=== PATIENT | female | born 1955 ===

== ENCOUNTER 2017-12-03 09:47 | Emergency (ER) | payer MEDICARE, MEDICAID ==
[2017-12-03] MEDS ORDERED: ACETAMINOPHEN 325 MG TAB PO ONE (10:23)
--- NOTE | 2017-12-03 10:28 | Emergency Department Record ---
History of Present Illness - General Chief Complaint: Fall Injury Stated Complaint: fall Time Seen by Provider: 12/03/17 10:19 Source: Patient Mode of Arrival: EMS Limitations: No limitations - History of Present Illness Initial Comments: The patient slipped in the shower and landed on her L side injuring her L ribs and elbow. She denies hitting her head or any LOC or neck pain. She was able to complete her shower after the fall with minimal trouble but since her ribs were still painful she felt she needed to come to the ER. The patient denies any AP, back pain, nausea, vomiting, or weakness. MD Complaint: Fall Onset/Timin -: Hour(s) Fall From: Standing When Fall Occurred: Just prior to arrival Fall Witnessed: No Place Fall Occurred: Home Loss of Consciousness: None Prolonged Down Time?: No Symptoms Prior to Fall: None Severity: Moderate Severity scale (1-10): 5 Quality: Aching Associated Symptoms: Denies - Gil Coma Scale Eye Response: (4) Open spontaneously Motor Response: (6) Obeys commands Verbal Response: (5) Oriented Gil Total: 15 - Related Data Previous Rx's Medication Instructions Recorded Metronidazole [Flagyl] 500 mg PO BID #14 tablet 12/03/17 Allergies Allergy/AdvReac Type Severity Reaction Status Date / Time beeswax Allergy Intermediate swelling Verified 12/03/17 10:14 perfume Allergy Intermediate tight chest Verified 12/03/17 10:14 simethicone [From Gas-X] Allergy Intermediate tight chest Verified 12/03/17 10: 14 mosquito Allergy Intermediate swelling Uncoded 12/03/17 10:14 Travel Screening - Travel/Exposure Within Last 30 Days Have you traveled within the last 30 days?: No - Travel/Exposure Within Last Year Have you traveled outside the [place] in the last year?: No - Additonal Travel Details Have you been exposed to anyone with a communicable illness?: No - Travel Symptoms Symptom Screening: None Review of Systems Constitutional: Denies: Chills, Fever Eyes: Denies: Eye discharge ENT: Denies: Congestion Respiratory: Denies: Cough, Dyspnea Past Medical History - SOCIAL HISTORY Smoking Status: Former smoker Alcohol Use: Occasional Drug Use: None - RESPIRATORY Hx Respiratory Disorders: Yes Hx Sleep Apnea: Yes Hx of CPAP: Yes Comment:: seasonal allergies - CARDIOVASCULAR Hx Cardio Disorders: Yes Hx Hypertension: Yes Hx Irregular Heartbeat: Yes Hx Palpitations: Yes - NEURO Hx Headaches: Yes - GI Hx Reflux: Yes - Hx UTI: Yes - ENDOCRINE Hx Diabetes: No Hx Thyroid Disease: Yes - MUSCULOSKELETAL Hx Back Injury: Yes - PSYCH Hx Psych Problems: No - HEMATOLOGY/ONCOLOGY Hx Hematology/Oncology Disorders: No Family Medical History Any Significant Family History?: Yes Physical Exam - General General Appearance: Alert, Oriented x3, Cooperative, No acute distress - Head Head exam: Atraumatic, Normocephalic, Normal inspection - Eye Eye exam: Normal appearance, PERRL - ENT Throat exam: Normal inspection. negative: Tonsillar erythema, Tonsillar exudate - Neck Neck exam: Normal inspection, Full ROM. negative: Tenderness - Respiratory Respiratory exam: Normal lung sounds bilaterally, Chest wall tenderness (The L lower ribs are mildly tender to palpation but no bruising or swelling is appreciated.). negative: Respiratory distress - Cardiovascular Cardiovascular Exam: Regular rate, Normal rhythm, Normal heart sounds - GI/Abdominal GI/Abdominal exam: Soft, Normal bowel sounds. negative: Distended, Rebound, Rigid, Tenderness - Extremities Extremities exam: Full ROM, Tenderness (There is mild tenderness to the posterior L elbow.). negative: Normal inspection - Neurological Neurological exam: Alert, Normal gait, Oriented X3. negative: Abnormal gait, Motor sensory deficit Course Vital Signs 12/03/17 09:55 Temperature 97.4 F L Pulse Rate 55 L Respiratory 16 Rate Blood Pressure 172/93 Pulse Ox 96 - Reevaluation(s) Reevaluation #1: The patient is doing better at this time. She denies any significant pain or discomfort. I did discuss the normal xrays and the UA that did demonstrate Trich with the patient and the need for F/U. 12/03/17 12:40 Medical Decision Making - Data Complexity MDM Data: Labs Ordered and/or Reviewed, X-Ray Ordered and/or Reviewed - Radiology Data Radiology results: Report reviewed (xrays: Neg for fx.) Disposition Disposition: Discharge Clinical Impression: Contusion of rib on left side Qualifiers: Encounter type: initial encounter Qualified Code(s): S20.212A - Contusion of left front wall of thorax, initial encounter Disposition: Home, Self-Care Condition: (2) Stable Instructions: Rib Contusion (ED) Additional Instructions: Please take Tylenol or Motrin for pain and take the Flagyl as directed. Please see your PCP next week for recheck and to be further evaluated for STD's. Prescriptions: Metronidazole [Flagyl] 500 mg PO BID #14 tablet Forms: Patient Portal Access Time of Disposition: 12:42 Quality - Quality Measures Quality Measures: N/A - Blood Pressure Screening View Details: Yes Does Patient Have Any of the Following: No Blood Pressure Classification: Hypertensive Reading Systolic Measurement: 172 Diastolic Measurement: 93 Screening for High Blood Pressure: < Pre-Hypertensive BP, F/U Documented > [ G8950] Pre-Hypertensive Follow-up Interventions: Referral to alternative/primary care provider.
[2017-12-03 11:04] LABS: URINE APPEARANCE CLEAR; URINE BILIRUBIN NEGATIVE (NEGATIVE); URINE BLOOD TRACE-L (NEGATIVE); URINE COLOR YELLOW; URINE GLUCOSE (UA) NEGATIVE (NEGATIVE); URINE KETONE NEGATIVE (NEGATIVE); URINE LEUKOCYTE ESTERASE SMALL (NEGATIVE); URINE NITRITE NEGATIVE (NEGATIVE); URINE UROBILINOGEN 0.2 E.U./dL (0.20 - 1.00)
[2017-12-03 11:34] LABS: URINE TRICHOMONAS FEW
--- NOTE | 2017-12-03 19:49 | RADIOLOGY REPORT ---
EXAM: ELBOW, LEFT 3 VIEWS HISTORY: LEFT ELBOW PAIN, PATIENT FELL. TECHNIQUE: Five views left elbow. COMPARISON: None. ENCOUNTER: Initial. FINDINGS: The left elbow appears intact with no definite fracture or dislocation seen. No joint effusion identified. IMPRESSION: THE LEFT ELBOW APPEARS NEGATIVE. JOB NUMBER: [id number] [facility]
--- NOTE | 2017-12-03 20:03 | RADIOLOGY REPORT ---
EXAM: RIBS, LEFT W/PA CHEST HISTORY: PATIENT FELL WITH LEFT RIB PAIN. TECHNIQUE: AP and oblique views of the left ribs, AP chest. COMPARISON: No prior chest x-ray or left rib series with which to compare. ENCOUNTER: Initial. FINDINGS: No definite left rib fracture identified. On the chest x-ray, no pneumothorax or pleural effusion evident. Mild cardiomegaly is likely present. IMPRESSION: NO DEFINITE LEFT RIB FRACTURE IDENTIFIED. JOB NUMBER: [id number] [facility]
== END 2017-12-03 12:49 | disposition home or self-care (01) ==
LOC: ER 09:47
DX: S20.212A Contusion of left front wall of thorax, initial encounter (principal); M25.522 Pain in left elbow; W18.2XXA Fall in (into) shower or empty bathtub, initial encounter; Y92.002 Bathroom of unspecified non-institutional (private) residence as the place of occurrence of the external cause
CPT/HCPCS: 81001; 99283; 99284

== ENCOUNTER 2018-06-21 16:18 | Emergency (ER) | payer MEDICARE, MEDICAID ==
[2018-06-21] MEDS: KETOROLAC 30 MG/ML VIAL IM ONE (17:03)
--- NOTE | 2018-06-21 17:05 | Emergency Department Record ---
History of Present Illness - General Chief complaint: Extremity Problem Stated complaint: rt leg pain Time Seen by Provider: 06/21/18 16:31 Source: Patient Mode of Arrival: EMS Limitations: No limitations - History of Present Illness Initial comments: pt brought in by ambulance for chronic pain. pt states she has started using crutches because she has too much pain from her back over her hip and down her right leg. she has had xrays of her back and knee over the last few months and has had physical therapy. she denies new injury. she states she is unable to walk and the pain is unbearable. she has not had an mri. -: Month(s) Location: Right, Knee, Thigh History of Same: Yes Severity scale (1-10): 10 Quality: Sharp, Stabbing Consistency: Constant Improves with: Nothing Worsens with: Nothing Associated Symptoms: Denies other symptoms - Related Data Allergies Allergy/AdvReac Type Severity Reaction Status Date / Time beeswax Allergy Intermediate swelling Verified 06/21/18 16:25 perfume Allergy Intermediate tight chest Verified 06/21/18 16:25 simethicone [From Gas-X] Allergy Intermediate tight chest Verified 06/21/18 16: 25 mosquito Allergy Intermediate swelling Uncoded 12/03/17 10:14 Travel Screening - Travel/Exposure Within Last 30 Days Have you traveled within the last 30 days?: No - Travel/Exposure Within Last Year Have you traveled outside the [place] in the last year?: No - Additonal Travel Details Have you been exposed to anyone with a communicable illness?: No - Travel Symptoms Symptom Screening: None Review of Systems Reviewed: No additional complaints except as noted below Constitutional: Reports: As per HPI. Denies: Chills, Fever, Malaise, Night sweats, Weakness, Weight change Eyes: Reports: As per HPI. Denies: Eye discharge, Eye pain, Photophobia, Vision change ENT: Reports: As per HPI. Denies: Congestion, Dental pain, Ear pain, Epistaxis , Hearing loss, Throat pain Respiratory: Reports: As per HPI. Denies: Cough, Dyspnea, Hemoptysis, Stridor, Wheezes Cardiovascular: Reports: As per HPI. Denies: Arrhythmia, Chest pain, Dyspnea on exertion, Edema, Murmurs, Orthopnea, Palpitations, Paroxysmal nocturnal dyspnea, Rheumatic Fever, Syncope Endocrine: Reports: As per HPI. Denies: Fatigue, Heat or cold intolerance, Polydipsia, Polyuria Gastrointestinal: Reports: As per HPI. Denies: Abdominal pain, Constipation, Diarrhea, Hematemesis, Hematochezia, Melena, Nausea, Vomiting Genitourinary: Reports: As per HPI. Denies: Abnormal menses, Discharge, Dyspareunia, Dysuria, Frequency, Hematuria, Incontinence, Retention, Urgency Musculoskeletal: Reports: As per HPI, Arthralgia, Myalgia. Denies: Back pain, Gout, Joint swelling, Neck pain Skin: Reports: As per HPI. Denies: Bruising, Change in color, Change in hair/ nails, Lesions, Pruritus, Rash Neurological: Reports: As per HPI. Denies: Abnormal gait, Confusion, Headache, Numbness, Paresthesias, Seizure, Tingling, Tremors, Vertigo, Weakness Psychiatric: Reports: As per HPI. Denies: Anxiety, Auditory hallucinations, Depression, Homicidal thoughts, Suicidal thoughts, Visual hallucinations Hematological/Lymphatic: Reports: As per HPI. Denies: Anemia, Blood Clots, Easy bleeding, Easy bruising, Swollen glands Past Medical History - SOCIAL HISTORY Smoking Status: Former smoker Alcohol Use: Occasional Drug Use: None - RESPIRATORY Hx Respiratory Disorders: Yes Hx Sleep Apnea: Yes Hx of CPAP: Yes Comment:: seasonal allergies - CARDIOVASCULAR Hx Cardio Disorders: Yes Hx Hypertension: Yes Hx Irregular Heartbeat: Yes Hx Palpitations: Yes - NEURO Hx Neuro Disorders: Yes Hx Headaches: Yes - GI Hx GI Disorders: Yes Hx Reflux: Yes - Hx Genitourinary Disorders: Yes Hx UTI: Yes - ENDOCRINE Hx Endocrine Disorders: Yes Hx Diabetes: No Hx Thyroid Disease: Yes - MUSCULOSKELETAL Hx Musculoskeletal Disorders: Yes Hx Back Injury: Yes - PSYCH Hx Psych Problems: No - HEMATOLOGY/ONCOLOGY Hx Hematology/Oncology Disorders: No Family Medical History Any Significant Family History?: No Physical Exam - General General Appearance: Alert, Oriented x3, Cooperative, Mild distress - Head Head exam: Normal inspection - Eye Eye exam: Normal appearance, PERRL, EOMI Pupils: Normal accommodation - ENT ENT exam: Normal exam, Mucous membranes moist, Normal external ear exam, Normal orophraynx Ear exam: Normal external inspection. negative: External canal tenderness Nasal Exam: Normal inspection. negative: Discharge, Sinus tenderness Mouth exam: Normal external inspection, Tongue normal Teeth exam: Normal inspection. negative: Dental caries Throat exam: Normal inspection. negative: Tonsillar erythema, Tonsillar exudate - Neck Neck exam: Normal inspection, Full ROM. negative: Tenderness - Respiratory Respiratory exam: Normal lung sounds bilaterally. negative: Respiratory distress - Cardiovascular Cardiovascular Exam: Regular rate, Normal rhythm, Normal heart sounds - GI/Abdominal GI/Abdominal exam: Soft, Normal bowel sounds. negative: Tenderness - Rectal Rectal exam: Deferred - exam: Deferred - Extremities Extremities exam: Normal inspection, Full ROM, Normal capillary refill, Tenderness (r hip) - Back Back exam: Reports: Normal inspection, Full ROM, Tenderness. Denies: Muscle spasm, Rash noted - Neurological Neurological exam: Alert, CN II-XII intact, Normal gait, Oriented X3 - Psychiatric Psychiatric exam: Normal affect, Normal mood - Skin Skin exam: Dry, Intact, Normal color, Warm Course Vital Signs 06/21/18 16:28 Temperature 98.3 F Pulse Rate 58 L Respiratory 20 Rate Blood Pressure 191/109 Pulse Ox 97 - Reevaluation(s) Reevaluation #1: 06/21/18 18:23 ct shows minor disc bulging Medical Decision Making - Lab Data Result diagrams: 06/21/18 17:00 06/21/18 17:00 Disposition Disposition: Discharge Clinical Impression: Chronic back pain Qualifiers: Back pain location: low back pain Back pain laterality: right Sciatica presence : with sciatica Sciatica laterality: sciatica of right side Qualified Code(s): M54.41 - Lumbago with sciatica, right side; G89.29 - Other chronic pain Sciatica Qualifiers: Laterality: right Qualified Code(s): M54.31 - Sciatica, right side Disposition: Home, Self-Care Condition: (1) Good Instructions: Sciatica (ED), Back Pain (ED) Additional Instructions: follow up with family doctor. return sooner if worse Forms: Patient Portal Access Quality - Quality Measures Quality Measures: N/A - Blood Pressure Screening Does Patient Have Any of the Following: No Blood Pressure Classification: Hypertensive Reading Systolic Measurement: 191 Diastolic Measurement: 109 Screening for High Blood Pressure: < First Hypertensive BP, F/U Documented > [ G8950] First Hypertensive Follow-up Interventions: Follow-up with rescreen GT 1 day and LT 4 weeks.
[2018-06-21 17:10] LABS: BASO % 0.8 % (0-6); EOS % 0.2 % (0-6); GRAN % 71.1 % (47-80); HEMATOCRIT 46.1 % (35.0-47.0); HEMOGLOBIN 15.3 gm/dl (11.6-16.0); LYMPH % 20.9 % (16-45); MEAN CORPUSCULAR HEMOGLOBIN 31.9 pg (27-33); MEAN CORPUSCULAR HGB CONC 33.2 g/dl (32-36); MEAN PLATELET VOLUME 10.1 fl (7.4-10.4); PLATELET COUNT 191 K/uL (130-400); RED CELL DISTRIBUTION WIDTH 12.4 % (11.5-14.5); WHITE BLOOD COUNT W/O DIFF 4.7 K/uL (4.2-12.2)
[2018-06-21 17:20] LABS: BLOOD UREA NITROGEN 10 mg/dL (8-23); CREATININE 0.8 mg/dL (0.5-0.9); EST GLOMERULAR FILTRATION RATE > 60 mL/min
[2018-06-21 17:21] LABS: TOTAL PROTEIN 7.1 g/dL (6.6-8.7)
[2018-06-21 17:23] LABS: GLUCOSE,RANDOM 91 mg/dL (74-109)
[2018-06-21 17:25] LABS: ALB/GLOB RATIO 1.3 (1.1-1.8); ALKALINE PHOSPHATASE 103 U/L (35-104); ALT/SGPT 25 U/L (<33); AST/SGOT 35 U/L (10.0-35.0)
[2018-06-21 17:26] LABS: CREATINE PHOSPHOKINASE 140 U/L (26-192)
[2018-06-21 17:45] LABS: ERYTHROCYTE SEDIMENTATION RATE 6 mm/hr (0-30)
[2018-06-21] MEDS: HYDROCODONE/APAP 5/325MG TABLET PO ONE (18:32)
--- NOTE | 2018-06-22 15:21 | CT SCAN REPORT ---
EXAM: CT OF THE LUMBAR SPINE WITHOUT CONTRAST HISTORY: LOW BACK PAIN, RIGHT HIP PAIN. TECHNIQUE: Sequential axial images were obtained through the lumbar spine without intravenous contrast administration. Sagittal and coronal three dimensional reformatted were performed at an independent workstation. Comparison: None. FINDINGS: There is normal vertebral body height and alignment. There is no compression fracture deformity, spondylolysis, or spondylolisthesis. At the L2-L3 level: Minimal disk bulge effaces the ventral thecal sac. No significant central canal stenosis or neural foraminal narrowing. At the L3-L4 level: Minimal disk bulge effaces the ventral thecal sac. No significant central canal stenosis or neural foraminal narrowing. At the L4-L5 level: Minimal disk bulge effaces the ventral thecal sac. No significant central canal stenosis or neural foraminal narrowing. At the L5-S1 level: Minimal disk bulge effaces the ventral thecal sac. No significant central canal stenosis or neural foraminal narrowing. No gross abnormalities within the visceral structures. IMPRESSION: MILD MULTILEVEL DEGENERATIVE CHANGE. NO EVIDENCE OF FRACTURE, SPONDYLOLYSIS OR SPONDYLOLISTHESIS. NO LARGE DISK HERNIATION, CENTRAL CANAL STENOSIS, OR NEURAL FORAMINAL NARROWING IS APPRECIATED. J[facility]BER: [id number] [facility]
== END 2018-06-21 18:56 | disposition home or self-care (01) ==
LOC: ER 16:18
DX: M54.41 Lumbago with sciatica, right side (principal); M25.561 Pain in right knee; I10 Essential (primary) hypertension; Z87.891 Personal history of nicotine dependence
CPT/HCPCS: 99283; 96372; 99284; 82550; 85025; 85651; 80053; 72131; J1885

== ENCOUNTER 2019-02-01 11:39 | Observation (INO) | payer MEDICARE, MEDICAID ==
[2019-02-01 11:55] LABS: URINE APPEARANCE CLEAR; URINE BILIRUBIN NEGATIVE (NEGATIVE); URINE BLOOD NEGATIVE (NEGATIVE); URINE COLOR YELLOW; URINE GLUCOSE (UA) NEGATIVE (NEGATIVE); URINE KETONE NEGATIVE (NEGATIVE); URINE LEUKOCYTE ESTERASE NEGATIVE (NEGATIVE); URINE NITRITE NEGATIVE (NEGATIVE); URINE PROTEIN NEGATIVE (NEGATIVE); URINE UROBILINOGEN 0.2 E.U./dL (0.20 - 1.00)
--- NOTE | 2019-02-01 11:56 | Emergency Department Record ---
History of Present Illness - General Chief complaint: Weakness Stated complaint: ABD PAIN/WEAKNESS Time Seen by Provider: 02/01/19 11:44 Source: Patient, RN notes reviewed - History of Present Illness Initial comments: patient was at her primary Provider Chas Joshua and she has been having more falls and slurred speech and some facial asymmetry and no headache and looked juandice. Patient has a history of drinking heavier than she admits too. patient was found to have a bradycardia of 40 in the office. - Related Data Home Medications Medication Instructions Recorded Confirmed Last Taken Hydrocortisone 1 applic TOP ASDIR 02/01/19 02/01/19 02/01/19 Allergies Allergy/AdvReac Type Severity Reaction Status Date / Time beeswax Allergy Intermediate swelling Verified 02/01/19 11:43 perfume Allergy Intermediate tight chest Verified 02/01/19 11:43 simethicone [From Gas-X] Allergy Intermediate tight chest Verified 02/01/19 11: 43 mosquito Allergy Intermediate swelling Uncoded 12/03/17 10:14 Review of Systems Reviewed: No additional complaints except as noted below Constitutional: Reports: As per HPI. Denies: Chills, Fever, Malaise, Night sweats, Weakness, Weight change Eyes: Reports: As per HPI. Denies: Eye discharge, Eye pain, Photophobia, Vision change ENT: Reports: As per HPI. Denies: Congestion, Dental pain, Ear pain, Epistaxis , Hearing loss, Throat pain Respiratory: Reports: As per HPI. Denies: Cough, Dyspnea, Hemoptysis, Stridor, Wheezes Cardiovascular: Reports: As per HPI, Arrhythmia. Denies: Chest pain, Dyspnea on exertion, Edema, Murmurs, Orthopnea, Palpitations, Paroxysmal nocturnal dyspnea, Rheumatic Fever, Syncope Endocrine: Reports: As per HPI. Denies: Fatigue, Heat or cold intolerance, Polydipsia, Polyuria Gastrointestinal: Reports: As per HPI. Denies: Abdominal pain, Constipation, Diarrhea, Hematemesis, Hematochezia, Melena, Nausea, Vomiting Genitourinary: Reports: As per HPI. Denies: Abnormal menses, Discharge, Dyspareunia, Dysuria, Frequency, Hematuria, Incontinence, Retention, Urgency Musculoskeletal: Reports: As per HPI. Denies: Arthralgia, Back pain, Gout, Joint swelling, Myalgia, Neck pain Skin: Reports: As per HPI. Denies: Bruising, Change in color, Change in hair/ nails, Lesions, Pruritus, Rash Neurological: Reports: As per HPI. Denies: Abnormal gait, Confusion, Headache, Numbness, Paresthesias, Seizure, Tingling, Tremors, Vertigo, Weakness Psychiatric: Reports: As per HPI. Denies: Anxiety, Auditory hallucinations, Depression, Homicidal thoughts, Suicidal thoughts, Visual hallucinations Hematological/Lymphatic: Reports: As per HPI. Denies: Anemia, Blood Clots, Easy bleeding, Easy bruising, Swollen glands Past Medical History - SOCIAL HISTORY Smoking Status: Former smoker Drug Use: None - RESPIRATORY Hx Respiratory Disorders: Yes Hx Sleep Apnea: Yes Hx of CPAP: Yes Comment:: seasonal allergies - CARDIOVASCULAR Hx Cardio Disorders: Yes Hx Hypertension: Yes Hx Irregular Heartbeat: Yes Hx Palpitations: Yes - NEURO Hx Neuro Disorders: Yes Hx Headaches: Yes - GI Hx GI Disorders: Yes Hx Reflux: Yes - Hx Genitourinary Disorders: Yes Hx UTI: Yes - ENDOCRINE Hx Endocrine Disorders: Yes Hx Diabetes: No Hx Thyroid Disease: Yes - MUSCULOSKELETAL Hx Musculoskeletal Disorders: Yes Hx Back Injury: Yes - PSYCH Hx Psych Problems: No - HEMATOLOGY/ONCOLOGY Hx Hematology/Oncology Disorders: No Physical Exam - General General Appearance: Alert, Oriented x3, Cooperative, No acute distress - Head Head exam: Normal inspection - Eye Eye exam: Normal appearance, PERRL Pupils: Normal accommodation - ENT ENT exam: Normal exam, Mucous membranes moist, Normal external ear exam, Normal orophraynx, TM's normal bilaterally Ear exam: Normal external inspection. negative: External canal tenderness Nasal Exam: Normal inspection. negative: Discharge, Sinus tenderness Mouth exam: Normal external inspection, Tongue normal Teeth exam: Normal inspection. negative: Dental caries Throat exam: Normal inspection. negative: Tonsillar erythema, Tonsillar exudate - Neck Neck exam: Normal inspection, Full ROM. negative: Tenderness - Respiratory Respiratory exam: Normal lung sounds bilaterally. negative: Respiratory distress - Cardiovascular Cardiovascular Exam: Regular rate, Normal rhythm, Normal heart sounds - GI/Abdominal GI/Abdominal exam: Soft, Normal bowel sounds. negative: Tenderness - Rectal Rectal exam: Deferred - exam: Deferred - Extremities Extremities exam: Normal inspection, Full ROM, Normal capillary refill. negative: Tenderness - Back Back exam: Reports: Normal inspection, Full ROM. Denies: Muscle spasm, Rash noted, Tenderness - Neurological Neurological exam: Alert, Normal gait, Oriented X3, Reflexes normal - Psychiatric Psychiatric exam: Normal affect, Normal mood - Skin Skin exam: Dry, Intact, Normal color, Warm Course - Reevaluation(s) Reevaluation #1: Discussed case with Dr Espinal and will stop toprol XL and see if the heart rate comes up and if it doesn't she may need a pacemaker. 02/01/19 13:40 Reevaluation #2: discussed case with chas Joshua and Marilou and will admit for observation 02/01/19 13:54 Medical Decision Making - Lab Data Result diagrams: 02/01/19 11:55 02/01/19 11:55 Disposition Clinical Impression: Sinus bradycardia, Elevated bilirubin, Elevated liver enzymes Decision to Admit: Admit from ER Condition: (1) Good Forms: Patient Portal Access Time of Disposition: 13:54 Quality - Blood Pressure Screening Does Patient Have Any of the Following: No Blood Pressure Classification: Hypertensive Reading Systolic Measurement: 149 Diastolic Measurement: 92
[2019-02-01 12:07] LABS: AMPHETAMINE SCREEN URINE NOT DETECTED; BARBITURATE SCREEN URINE NOT DETECTED; BENZODIAZEPINE SCREEN URINE NOT DETECTED; COCAINE SCREEN URINE NOT DETECTED; METHADONE SCREEN URINE NOT DETECTED; METHAMPHETAMINE SCREEN NOT DETECTED; OPIATE SCREEN URINE NOT DETECTED; OXYCODONE SCREEN URINE NOT DETECTED; PHENCYCLIDINE SCREEN URINE NOT DETECTED; PROPOXYPHENE SCREEN URINE NOT DETECTED; THC SCREEN URINE NOT DETECTED; TRICYCLIC ANTIDEPRESSANT SCRN NOT DETECTED
[2019-02-01 12:22] LABS: BASO % 1.1 % (0-6); EOS % 1.1 % (0-6); GRAN % 63.3 % (47-80); HEMATOCRIT 42.8 % (35.0-47.0); HEMOGLOBIN 13.9 gm/dl (11.6-16.0); LYMPH % 25.4 % (16-45); MEAN CELL VOLUME 98.8 fl (81-97); MEAN CORPUSCULAR HEMOGLOBIN 32.1 pg (27-33); MEAN CORPUSCULAR HGB CONC 32.5 g/dl (32-36); MEAN PLATELET VOLUME 11.1 fl (7.4-10.4); MONO % 9.1 % (0-9); PLATELET COUNT 179 K/uL (130-400); RED BLOOD COUNT 4.33 M/uL (3.80-5.40); RED CELL DISTRIBUTION WIDTH 13.2 % (11.5-14.5); WHITE BLOOD COUNT W/O DIFF 3.7 K/uL (4.2-12.2)
[2019-02-01 13:01] LABS: BLOOD UREA NITROGEN 7 mg/dL (8-23); CREATININE 0.9 mg/dL (0.5-0.9); EST GLOMERULAR FILTRATION RATE > 60 mL/min
[2019-02-01 13:02] LABS: LIPASE 52 U/L (13-60); TOTAL PROTEIN 7.5 g/dL (6.6-8.7)
[2019-02-01 13:04] LABS: GLUCOSE,RANDOM 88 mg/dL (74-109)
[2019-02-01 13:06] LABS: ALBUMIN 4.6 g/dL (4.0-5.0); ALKALINE PHOSPHATASE 121 U/L (35-104); ALT/SGPT 51 U/L (<33); AST/SGOT 48 U/L (10.0-35.0); BILIRUBIN,DIRECT 0.2 mg/dL (0-0.3)
--- NOTE | 2019-02-02 05:28 | CT SCAN REPORT ---
EXAM: NONCONTRAST CT OF THE BRAIN HISTORY: FREQUENT FALLS, BLURRY VISION. TECHNIQUE: Noncontrast CT of the brain was obtained. Comparison: None. FINDINGS: No midline shift, mass effect, or abnormal intra or extraaxial fluid collection. No cerebral edema, focal mass or intracranial hemorrhage detected. The ventricle sizes are within normal limits. Scattered periventricular and subcortical white matter hypoattenuation is present. The basal cisterns are not effaced. No displaced calvarial fracture is detected. The visualized paranasal sinuses and mastoid air cells are clear. IMPRESSION: 1. NO ACUTE INTRACRANIAL FINDINGS. 2. NONSPECIFIC AREAS OF WHITE MATTER HYPOATTENUATION; MAY REPRESENT CHRONIC SMALL VESSEL ISCHEMIC CHANGE. JOB NUMBER: [id number] [facility]
--- NOTE | 2019-02-02 05:34 | RADIOLOGY REPORT ---
EXAM: CHEST, TWO VIEWS HISTORY: RIGHT FACIAL ASYMMETRY. TECHNIQUE: Two views of the chest were obtained. Comparison: Chest and left rib series 12/03/17. FINDINGS: Mild cardiac silhouette enlargement, stable from prior study. No new focal pulmonary opacities. No pleural effusion or pneumothorax. IMPRESSION: 1. MILD UNCHANGED CARDIAC SILHOUETTE ENLARGEMENT. 2. NO ACUTE LUNG FINDINGS. JOB NUMBER: [id number] [facility]
[2019-02-02] MEDS ORDERED: LEVOTHYROXINE SODIUM 100 MCG TABLET PO SCH (07:00)
[2019-02-02] MEDS: LISINOPRIL 20 MG TABLET PO SCH ×2 (07:40→10:20)
--- NOTE | 2019-02-02 09:37 | History & Physical ---
History of Present Illness - Date of Service Date of Service for History & Physical: 02/01/19 - History of Present Illness Admitting Diagnosis: bradycardia History of Present Illness: Yeni Casas is a 63 y/o female presenting to the ED as a transfer from PCP Shahla Joshua for bradycardia, slurred speech and jaundice skin, and RUQ abdominal tenderness. Patient is an extremely poor historian and does not have any family or friends present with her. Upon reviewing case with her PCP patient does have a hx of chronic heavy ETOH use, non-adherence to medication use. Other notable history includes frequent falling- last 2 days prior to admit , ETOH, thyroid disease including radiation therapy in the 70's, CARMELINA but does not use CPAP due to nose bleeds, cardiac arrhythmia, palpitations, HTN, headaches, GERD, chronic low back pain. In the ED EKG sinus bradycardia with ST segment depression and T-wave inversion , total bili 1.9, AST/ALT 48/51, ammonia wnl, troponin <.0.010, lipase 52, urine ETOH .010, UDS negative, CXR normal, CT head no acute process, + chronic white matter changes and small vessel ischemia. 02/01/19- Resting in bed comfortably, is a very poor historian. Does live alone and had a payee for her finances. Slurred speech, hyperverbal, flight of ideas. She does report has had RUQ abdominal pain for the past 2-3 days, had noticed her skin was becoming more yellow and itchy. Does admit to heavy alcohol use in the past stating at one point taking 3 shots of rum daily and then drinking a case of beer daily. Reports she takes her medications every day by taking them out the package and 'taking a handful of them daily". Did have a fall where she caught herself on a mailbox, denies head injury or LOC at that time. Unsure of event surrounding fall. Has had poor appetite. Denies chest pain, palpitations, dizziness, NANCY. Travel Screening - Travel/Exposure Within Last 30 Days Have you traveled within the last 30 days?: No - Travel/Exposure Within Last Year Have you traveled outside the [place] in the last year?: No - Additonal Travel Details Have you been exposed to anyone with a communicable illness?: No - Travel Symptoms Symptom Screening: None Review of Systems Constitutional: Reports: As per HPI. Denies: Chills, Fever, Malaise, Night sweats, Weakness, Weight change Eyes: Reports: As per HPI. Denies: Eye discharge, Eye pain, Photophobia, Vision change ENT: Reports: As per HPI. Denies: Congestion, Dental pain, Ear pain, Epistaxis , Hearing loss, Throat pain Respiratory: Reports: As per HPI. Denies: Cough, Dyspnea, Hemoptysis, Stridor, Wheezes Cardiovascular: Reports: As per HPI, Arrhythmia. Denies: Chest pain, Dyspnea on exertion, Edema, Murmurs, Orthopnea, Palpitations, Paroxysmal nocturnal dyspnea, Rheumatic Fever, Syncope Endocrine: Reports: As per HPI. Denies: Fatigue, Heat or cold intolerance, Polydipsia, Polyuria Gastrointestinal: Reports: As per HPI. Denies: Abdominal pain, Constipation, Diarrhea, Hematemesis, Hematochezia, Melena, Nausea, Vomiting Genitourinary: Reports: As per HPI. Denies: Abnormal menses, Discharge, Dyspareunia, Dysuria, Frequency, Hematuria, Incontinence, Retention, Urgency Musculoskeletal: Reports: As per HPI. Denies: Arthralgia, Back pain, Gout, Joint swelling, Myalgia, Neck pain Skin: Reports: As per HPI. Denies: Bruising, Change in color, Change in hair/ nails, Lesions, Pruritus, Rash Neurological: Reports: As per HPI. Denies: Abnormal gait, Confusion, Headache, Numbness, Paresthesias, Seizure, Tingling, Tremors, Vertigo, Weakness Psychiatric: Reports: As per HPI. Denies: Anxiety, Auditory hallucinations, Depression, Homicidal thoughts, Suicidal thoughts, Visual hallucinations Hematological/Lymphatic: Reports: As per HPI. Denies: Anemia, Blood Clots, Easy bleeding, Easy bruising, Swollen glands Past Medical History - SOCIAL HISTORY Smoking Status: Former smoker Alcohol Use: Occasional Drug Use: None - RESPIRATORY Hx Respiratory Disorders: Yes Hx Sleep Apnea: Yes Hx of CPAP: Yes Comment:: seasonal allergies - CARDIOVASCULAR Hx Cardio Disorders: Yes Hx Hypertension: Yes Hx Irregular Heartbeat: Yes Hx Palpitations: Yes - NEURO Hx Neuro Disorders: Yes Hx Headaches: Yes - GI Hx GI Disorders: Yes Hx Reflux: Yes - Hx Genitourinary Disorders: Yes Hx UTI: Yes - ENDOCRINE Hx Endocrine Disorders: Yes Hx Diabetes: No Hx Thyroid Disease: Yes - MUSCULOSKELETAL Hx Musculoskeletal Disorders: Yes Hx Back Injury: Yes - PSYCH Hx Psych Problems: No - HEMATOLOGY/ONCOLOGY Hx Hematology/Oncology Disorders: No Family Medical History Any Significant Family History?: Yes Hx Alcohol Use: Children Hx Heart Disease: Mother Hx HTN: Mother Hx Resp Disorders: Mother Hx Seizures: Mother Hx Stroke: Mother H&P Meds/Allergies - Allergies Allergies: Allergies Allergy/AdvReac Type Severity Reaction Status Date / Time beeswax Allergy Intermediate swelling Verified 02/01/19 11:43 perfume Allergy Intermediate tight chest Verified 02/01/19 11:43 simethicone [From Gas-X] Allergy Intermediate tight chest Verified 02/01/19 11: 43 mosquito Allergy Intermediate swelling Uncoded 12/03/17 10:14 - Home Medications Home Medications Medication Instructions Recorded Confirmed Last Taken Hydrocortisone 1 applic TOP ASDIR 02/01/19 02/01/19 02/01/19 - Active Medications Active Medications: Current Medications Aspirin (Ecotrin (Ec)) 325 mg PO DAILY [facility] Atorvastatin Calcium (Lipitor) 40 mg PO DAILY [facility] Levothyroxine Sodium (Synthroid) 200 mcg PO DAILYTHY [facility] Last Admin: 02/02/19 06:05 Dose: 200 mcg Lisinopril (Zestril) 20 mg PO DAILY [facility] Last Admin: 02/02/19 07:40 Dose: 20 mg Meloxicam (Mobic) 15 mg PO DAILY [facility] Physical Exam - Vital Signs Vital Signs: Vital Signs - Last 24 Hrs Temp Pulse Pulse Pulse Resp BP BP 02/02/19 07:40 97.9 F 48 L 18 159/69 02/02/19 03:00 97.8 F 46 L 16 158/78 02/01/19 19:30 45 L 12 160/80 02/01/19 16:05 97.0 F L 52 L 02/01/19 15:34 47 L 14 02/01/19 14:43 45 L 16 173/102 02/01/19 14:03 41 L 18 179/92 02/01/19 13:35 40 L 18 163/85 02/01/19 13:26 37 L 18 167/89 02/01/19 13:15 37 L 20 167/92 02/01/19 13:01 37 L 20 171/91 02/01/19 13:00 37 L 18 167/89 02/01/19 11:44 97.3 F L 42 L 20 149/92 Pulse Ox 02/02/19 07:40 95 02/02/19 03:00 02/01/19 19:30 95 02/01/19 16:05 02/01/19 15:34 02/01/19 14:43 97 02/01/19 14:03 95 02/01/19 13:35 96 02/01/19 13:26 97 02/01/19 13:15 97 02/01/19 13:01 98 02/01/19 13:00 97 02/01/19 11:44 98 - General General Appearance: Alert, Cooperative, No acute distress, Other (hyperverbal, flight of ideas, oriented 2-3) - Head Head exam: Normal inspection - Eye Eye exam: Normal appearance, PERRL Pupils: Normal accommodation - ENT ENT exam: Normal exam, Mucous membranes moist, Normal external ear exam, Normal orophraynx, TM's normal bilaterally Ear exam: Normal external inspection. negative: External canal tenderness Nasal Exam: Normal inspection. negative: Discharge, Sinus tenderness Mouth exam: Normal external inspection, Tongue normal Teeth exam: Normal inspection. negative: Dental caries Throat exam: Normal inspection. negative: Tonsillar erythema, Tonsillar exudate - Neck Neck exam: Normal inspection, Full ROM. negative: Tenderness - Respiratory Respiratory exam: Normal lung sounds bilaterally. negative: Respiratory distress - Cardiovascular Cardiovascular Exam: Regular rate, Normal rhythm, Normal heart sounds, Bradycardia Peripheral Pulses: 2+: Radial (R), Radial (L), Dorsalis Pedis (R), Dorsalis Pedis (L) - GI/Abdominal GI/Abdominal exam: Soft, Hypoactive bowel sounds, Tenderness (RUQ) - Rectal Rectal exam: Deferred - exam: Deferred - Extremities Extremities exam: Normal inspection, Full ROM, Normal capillary refill. negative: Tenderness - Back Back exam: Reports: Normal inspection, Full ROM, Paraspinal tenderness (lumbar) . Denies: Muscle spasm, Rash noted, Tenderness - Neurological Neurological exam: Alert, Normal gait, Oriented X3 (2-3, orientation waxes and wanes, flight of ideas), Reflexes normal - Psychiatric Psychiatric exam: Normal affect, Normal mood, Other (pleasantly disoriented) - Skin Skin exam: Dry, Intact, Normal color, Warm Results - Labs Result Diagrams: 02/01/19 11:55 02/01/19 11:55 Labs Last 24 Hours: Laboratory Results - last 24 hr 02/01/19 02/01/19 02/01/19 11:45 11:45 11:55 WBC 3.7 L RBC 4.33 Hgb 13.9 Hct 42.8 MCV 98.8 H MCH 32.1 MCHC 32.5 RDW 13.2 Plt Count 179 MPV 11.1 H Gran % 63.3 Lymphocytes % 25.4 Monocytes % 9.1 H Eosinophils % 1.1 Basophils % 1.1 APTT Sodium Potassium Chloride Carbon Dioxide Anion Gap BUN Creatinine Estimated GFR Random Glucose Calcium Total Bilirubin Direct Bilirubin AST ALT Alkaline Phosphatase Ammonia Troponin T Total Protein Albumin Lipase TSH Urine Color Yellow Urine Appearance Clear Urine pH 7.0 Ur Specific [place] 1.010 Urine Protein Negative Urine Glucose (UA) Negative Urine Ketones Negative Urine Blood Negative Urine Nitrite Negative Urine Bilirubin Negative Urine Urobilinogen 0.2 Ur Leukocyte Esterase Negative Urine Opiates Screen Not detected Ur Oxycodone Screen Not detected Urine Methadone Screen Not detected Ur Propoxyphene Screen Not detected Ur Barbituates Screen Not detected Ur Tricyclics Screen Not detected Ur Phencyclidine Scrn Not detected Ur Amphetamine Screen Not detected U Methamphetamines Scrn Not detected U Benzodiazepines Scrn Not detected Urine Cocaine Screen Not detected Urine Cannabis Screen Not detected Ethyl Alcohol 02/01/19 02/01/19 02/01/19 11:55 11:55 11:55 WBC RBC Hgb Hct MCV MCH MCHC RDW Plt Count MPV Gran % Lymphocytes % Monocytes % Eosinophils % Basophils % APTT Sodium 139 Potassium 4.1 Chloride 101 Carbon Dioxide 27.0 Anion Gap 11.0 BUN 7 L Creatinine 0.9 Estimated GFR > 60 Random Glucose 88 Calcium 9.0 Total Bilirubin 1.90 H Direct Bilirubin 0.2 AST 48 H ALT 51 H Alkaline Phosphatase 121 H Ammonia 20 Troponin T Total Protein 7.5 Albumin 4.6 Lipase 52 TSH Urine Color Urine Appearance Urine pH Ur Specific [place] Urine Protein Urine Glucose (UA) Urine Ketones Urine Blood Urine Nitrite Urine Bilirubin Urine Urobilinogen Ur Leukocyte Esterase Urine Opiates Screen Ur Oxycodone Screen Urine Methadone Screen Ur Propoxyphene Screen Ur Barbituates Screen Ur Tricyclics Screen Ur Phencyclidine Scrn Ur Amphetamine Screen U Methamphetamines Scrn U Benzodiazepines Scrn Urine Cocaine Screen Urine Cannabis Screen Ethyl Alcohol 0.010 0302/01/19 02/01/19 11:55 11:55 11:56 WBC RBC Hgb Hct MCV MCH MCHC RDW Plt Count MPV Gran % Lymphocytes % Monocytes % Eosinophils % Basophils % APTT 29.2 Sodium Potassium Chloride Carbon Dioxide Anion Gap BUN Creatinine Estimated GFR Random Glucose Calcium Total Bilirubin Direct Bilirubin AST ALT Alkaline Phosphatase Ammonia Troponin T < 0.010 Total Protein Albumin Lipase TSH 31.07 H Urine Color Urine Appearance Urine pH Ur Specific [place] Urine Protein Urine Glucose (UA) Urine Ketones Urine Blood Urine Nitrite Urine Bilirubin Urine Urobilinogen Ur Leukocyte Esterase Urine Opiates Screen Ur Oxycodone Screen Urine Methadone Screen Ur Propoxyphene Screen Ur Barbituates Screen Ur Tricyclics Screen Ur Phencyclidine Scrn Ur Amphetamine Screen U Methamphetamines Scrn U Benzodiazepines Scrn Urine Cocaine Screen Urine Cannabis Screen Ethyl Alcohol 02/01/19 02/01/19 02/02/19 16:05 20:40 04:00 WBC RBC Hgb Hct MCV MCH MCHC RDW Plt Count MPV Gran % Lymphocytes % Monocytes % Eosinophils % Basophils % APTT Sodium Cancelled Potassium Cancelled Chloride Cancelled Carbon Dioxide Cancelled Anion Gap Cancelled BUN Cancelled Creatinine Cancelled Estimated GFR Cancelled Random Glucose Cancelled Calcium Cancelled Total Bilirubin Direct Bilirubin AST ALT Alkaline Phosphatase Ammonia Troponin T < 0.010 < 0.010 Total Protein Albumin Lipase TSH Urine Color Urine Appearance Urine pH Ur Specific [place] Urine Protein Urine Glucose (UA) Urine Ketones Urine Blood Urine Nitrite Urine Bilirubin Urine Urobilinogen Ur Leukocyte Esterase Urine Opiates Screen Ur Oxycodone Screen Urine Methadone Screen Ur Propoxyphene Screen Ur Barbituates Screen Ur Tricyclics Screen Ur Phencyclidine Scrn Ur Amphetamine Screen U Methamphetamines Scrn U Benzodiazepines Scrn Urine Cocaine Screen Urine Cannabis Screen Ethyl Alcohol - Imaging and Cardiology Chest x-ray Status: Report reviewed (no acute process) CT scan - head Status: Report reviewed (no acute process, chronic white matter changes with small vessel ischemia) VTE H&P Assessment - Risk for VTE Risk for VTE: Yes Risk Level: Moderate Risk Assessment Date: 02/01/19 Risk Assessment Time: 17:00 VTE Orders Placed or Will Be Placed: Yes Plan - Detailed Diagnosis and Plan (1) Sinus bradycardia Current Visit: Yes Status: Acute Base Code: R00.1 - BRADYCARDIA, UNSPECIFIED Comment: 02/01/19 - Etiology unclear - Hold Beta douglas x 24 hours and reevaluate resting and ambulatory HR - Cardiology consult - Echo - Telemetry - TSH (2) RUQ abdominal pain Current Visit: Yes Status: Acute Base Code: R10.11 - RIGHT UPPER QUADRANT PAIN Comment: 02/01/19 - AST/ALT- 48/51, ammonia 20, lipase 52 - Abdominal U/S in the am - Hepatitis screening done by PCP and negative (3) Change in mental status Current Visit: Yes Status: Acute Base Code: R41.82 - ALTERED MENTAL STATUS, UNSPECIFIED Comment: 02/01/19 - Head CT in ED negative for acute process, + small vessel ischemic changes and chronic white matter changes - Likely mutifactoral inclucing heavy ETOH history (4) H/O ETOH abuse Current Visit: Yes Status: Acute Base Code: Z87.898 - PERSONAL HISTORY OF OTHER SPECIFIED CONDITIONS Comment: 02/01/19 - Urine ETOH negative in ED - Initiate CIWA due to poor historian and alteration in usual behavior (5) DVT prophylaxis Current Visit: Yes Status: Acute Base Code: [id number] - Comment: 02/01/19 - Lovenox 40mg QD - Nursing to encourage ambulation (6) Full code status Current Visit: Yes Status: Acute Base Code: Z78.9 - OTHER SPECIFIED HEALTH STATUS Comment: 02/01/19
[2019-02-02] MEDS ORDERED: ATORVASTATIN 20 MG TABLET PO SCH (10:00)
[2019-02-02] MEDS ORDERED: MELOXICAM 7.5 MG TABLET PO SCH (10:00)
[2019-02-02] MEDS ORDERED: ASPIRIN 325 MG TAB ENTERIC-COATED PO SCH (10:00)
--- NOTE | 2019-02-02 13:13 | Physician Progress Note ---
Subjective - Date Date of Physician Progress Note: 02/02/19 - Subjective Subjective Comment: No new nursing concerns over the past 24 hours. Patient reports she feels better , has been getting up alone to use BR without issue. Denies chest pain, dizziness, chest pressure. Did ambulate with respiratory this am and HR elevated to 55 with sitting up to the side of the bed and to 65 with ambulation. Resting HR is 56 this am-->was 38-44 yesterday. Echo was completed yesterday as well as cardiology consult. Abdominal U/S completed this am and waiting for results. Expect cardiology to see patient in follow today. Objective - Vital Signs Vital Signs: Vital Signs - Last 24 Hrs Temp Pulse Pulse Pulse Resp BP BP 02/02/19 11:00 52 L 18 130/78 02/02/19 09:00 46 L 02/02/19 07:40 97.9 F 48 L 18 159/69 02/02/19 03:00 97.8 F 46 L 16 158/78 02/01/19 19:30 45 L 12 160/80 02/01/19 16:05 97.0 F L 52 L 02/01/19 15:34 47 L 14 02/01/19 14:43 45 L 16 173/102 02/01/19 14:03 41 L 18 179/92 02/01/19 13:35 40 L 18 163/85 02/01/19 13:26 37 L 18 167/89 02/01/19 13:15 37 L 20 167/92 02/01/19 13:01 37 L 20 171/91 Pulse Ox 02/02/19 11:00 02/02/19 09:00 02/02/19 07:40 95 02/02/19 03:00 02/01/19 19:30 95 02/01/19 16:05 02/01/19 15:34 02/01/19 14:43 97 02/01/19 14:03 95 02/01/19 13:35 96 02/01/19 13:26 97 02/01/19 13:15 97 02/01/19 13:01 98 - General General Appearance: Alert, Oriented x3, Cooperative, No acute distress - Head Head exam: Normal inspection - Eye Eye exam: Normal appearance, PERRL Pupils: Normal accommodation - ENT ENT exam: Normal exam, Mucous membranes moist, Normal external ear exam, Normal orophraynx, TM's normal bilaterally Ear exam: Normal external inspection. negative: External canal tenderness Nasal Exam: Normal inspection. negative: Discharge, Sinus tenderness Mouth exam: Normal external inspection, Tongue normal Teeth exam: Normal inspection. negative: Dental caries Throat exam: Normal inspection. negative: Tonsillar erythema, Tonsillar exudate - Neck Neck exam: Normal inspection, Full ROM. negative: Tenderness - Respiratory Respiratory exam: Normal lung sounds bilaterally. negative: Respiratory distress - Cardiovascular Cardiovascular Exam: Regular rate, Normal rhythm, Normal heart sounds, Bradycardia Peripheral Pulses: 2+: Radial (R), Radial (L), Dorsalis Pedis (R), Dorsalis Pedis (L) - GI/Abdominal GI/Abdominal exam: Soft, Hypoactive bowel sounds, Tenderness (RUQ) - Rectal Rectal exam: Deferred - exam: Deferred - Extremities Extremities exam: Normal inspection, Full ROM, Normal capillary refill. negative: Tenderness - Back Back exam: Reports: Normal inspection, Full ROM, Paraspinal tenderness (lumbar) . Denies: Muscle spasm, Rash noted, Tenderness - Neurological Neurological exam: Alert, Normal gait, Oriented X3 (2-3, orientation waxes and wanes, flight of ideas), Reflexes normal - Psychiatric Psychiatric exam: Normal affect, Normal mood, Other (slight flight of idea but much improved from yesterday) - Skin Skin exam: Dry, Intact, Normal color, Warm Assessment and Plan - Assessment and Plan (1) Sinus bradycardia Current Visit: Yes Status: Acute Base Code: R00.1 - BRADYCARDIA, UNSPECIFIED Comment: 02/02/19 - TSH 31.7, known history of hypothyroidism on Levothyroxine 200mcg - Continue to hold beta douglas until cardiology reevaluation - Resting HR is 56 today and increaed to 65 with ambulation - Echo comlete- LVH, EF 60-65, mild tricuspid regurgitation - Telemetry- remains sinus alen (2) RUQ abdominal pain Current Visit: Yes Status: Acute Base Code: R10.11 - RIGHT UPPER QUADRANT PAIN Comment: 02/02/19 - AST/ALT- 48/51, ammonia 20, lipase 52 in ED - Abdominal U/S comleted - Hepatitis screening done by PCP and negative (3) Change in mental status Current Visit: Yes Status: Acute Base Code: R41.82 - ALTERED MENTAL STATUS, UNSPECIFIED Comment: 02/02/19 - Head CT in ED negative for acute process, + small vessel ischemic changes and chronic white matter changes - Likely mutifactoral inclucing heavy ETOH history and TSH 31.7 (4) H/O ETOH abuse Current Visit: Yes Status: Acute Base Code: Z87.898 - PERSONAL HISTORY OF OTHER SPECIFIED CONDITIONS Comment: 02/02/19 - Urine ETOH negative in ED - Initiate CIWA due to poor historian and alteration in usual behavior- CIWA scores consistently 0-1 - No gross signs of DT (5) DVT prophylaxis Current Visit: Yes Status: Acute Base Code: [id number] - Comment: 02/02/19 - Lovenox 40mg QD - Nursing to encourage ambulation (6) Full code status Current Visit: Yes Status: Acute Base Code: Z78.9 - OTHER SPECIFIED HEALTH STATUS Comment: 02/02/19 Results - Labs Result Diagrams: 02/01/19 11:55 02/01/19 11:55 Labs Last 24 Hours: Laboratory Results - last 24 hr 02/01/19 02/01/19 02/01/19 11:55 11:55 11:55 APTT 29.2 Sodium 139 Potassium 4.1 Chloride 101 Carbon Dioxide 27.0 Anion Gap 11.0 BUN 7 L Creatinine 0.9 Estimated GFR > 60 Random Glucose 88 Calcium 9.0 Total Bilirubin 1.90 H Direct Bilirubin 0.2 AST 48 H ALT 51 H Alkaline Phosphatase 121 H Troponin T < 0.010 Total Protein 7.5 Albumin 4.6 Lipase 52 TSH 02/01/19 02/01/19 02/01/19 11:56 16:05 20:40 APTT Sodium Cancelled Potassium Cancelled Chloride Cancelled Carbon Dioxide Cancelled Anion Gap Cancelled BUN Cancelled Creatinine Cancelled Estimated GFR Cancelled Random Glucose Cancelled Calcium Cancelled Total Bilirubin Direct Bilirubin AST ALT Alkaline Phosphatase Troponin T < 0.010 Total Protein Albumin Lipase TSH 31.07 H 02/02/19 04:00 APTT Sodium Potassium Chloride Carbon Dioxide Anion Gap BUN Creatinine Estimated GFR Random Glucose Calcium Total Bilirubin Direct Bilirubin AST ALT Alkaline Phosphatase Troponin T < 0.010 Total Protein Albumin Lipase TSH DVT/PE Assessment - Risk for VTE Risk for VTE: No Risk Level: Moderate Risk Assessment Date: 02/01/19 Risk Assessment Time: 17:00 VTE Orders Placed or Will Be Placed: Yes - Active Medicaitons Current Medications: Current Medications Aspirin (Ecotrin (Ec)) 325 mg PO DAILY [facility] Last Admin: 02/02/19 10:23 Dose: 325 mg Atorvastatin Calcium (Lipitor) 40 mg PO DAILY [facility] Last Admin: 02/02/19 10:23 Dose: 40 mg Enoxaparin Sodium (Lovenox) 40 mg SQ DAILY [facility] Levothyroxine Sodium (Synthroid) 200 mcg PO DAILYTHY [facility] Last Admin: 02/02/19 06:05 Dose: 200 mcg Lisinopril (Zestril) 20 mg PO DAILY [facility] Last Admin: 02/02/19 10:20 Dose: Not Given Meloxicam (Mobic) 15 mg PO DAILY [facility] Last Admin: 02/02/19 10:23 Dose: 15 mg AMI Plan - Labs Result Diagrams: 02/01/19 11:55 02/01/19 11:55
--- NOTE | 2019-02-02 16:09 | Discharge Summary ---
Providers Discharge Summary Date: 02/02/19 Date of admission: 02/01/19 14:59 Attending physician: LYNETTE CARDENAS Primary care physician: Shahla Joshua NRobel Consults: Consult Orders 02/01/19 13:01 Consult - Cardiology NOW Consulting Provider: PRISCILLA NEWELL Physician Instructions: Reason For Exam: bradycardia Does pt have current sole tier?: Not Established Physical Exam - Vital Signs Vital Signs: Vital Signs - Last 24 Hrs Temp Pulse Pulse Resp BP Pulse Ox 02/02/19 11:00 52 L 18 130/78 02/02/19 09:00 46 L 02/02/19 07:40 97.9 F 48 L 18 159/69 95 02/02/19 03:00 97.8 F 46 L 16 158/78 02/01/19 19:30 45 L 12 160/80 95 02/01/19 16:05 97.0 F L 52 L - General General Appearance: Alert, Oriented x3, Cooperative, No acute distress - Head Head exam: Normal inspection - Eye Eye exam: Normal appearance, PERRL Pupils: Normal accommodation - ENT ENT exam: Normal exam, Mucous membranes moist, Normal external ear exam, Normal orophraynx, TM's normal bilaterally Ear exam: Normal external inspection. negative: External canal tenderness Nasal Exam: Normal inspection. negative: Discharge, Sinus tenderness Mouth exam: Normal external inspection, Tongue normal Teeth exam: Normal inspection. negative: Dental caries Throat exam: Normal inspection. negative: Tonsillar erythema, Tonsillar exudate - Neck Neck exam: Normal inspection, Full ROM. negative: Tenderness - Respiratory Respiratory exam: Normal lung sounds bilaterally. negative: Respiratory distress - Cardiovascular Cardiovascular Exam: Regular rate, Normal rhythm, Normal heart sounds, Bradycardia Peripheral Pulses: 2+: Radial (R), Radial (L), Dorsalis Pedis (R), Dorsalis Pedis (L) - GI/Abdominal GI/Abdominal exam: Soft, Hypoactive bowel sounds, Tenderness (RUQ) - Rectal Rectal exam: Deferred - exam: Deferred - Extremities Extremities exam: Normal inspection, Full ROM, Normal capillary refill. negative: Tenderness - Back Back exam: Reports: Normal inspection, Full ROM, Paraspinal tenderness (lumbar) . Denies: Muscle spasm, Rash noted, Tenderness - Neurological Neurological exam: Alert, Normal gait, Oriented X3 (2-3, orientation waxes and wanes, flight of ideas), Reflexes normal - Psychiatric Psychiatric exam: Normal affect, Normal mood, Other (slight flight of idea but much improved from yesterday) - Skin Skin exam: Dry, Intact, Normal color, Warm Hospitalization - Hospitalization Admission Diagnosis: bradycardia - Problem List/Discharge Diagnosis (1) Sinus bradycardia Current Visit: Yes Status: Acute Base Code: R00.1 - BRADYCARDIA, UNSPECIFIED Comment: 02/02/19 - TSH 31.7, known history of hypothyroidism on Levothyroxine 200mcg - Continue to hold beta douglas until cardiology reevaluation - Resting HR is 56 today and increaed to 65 with ambulation - Echo comlete- LVH, EF 60-65, mild tricuspid regurgitation - Follow up as scheduled with [facility] Cardiology (2) RUQ abdominal pain Current Visit: Yes Status: Acute Base Code: R10.11 - RIGHT UPPER QUADRANT PAIN Comment: 02/02/19 - AST/ALT- 48/51, ammonia 20, lipase 52 in ED - Abdominal U/S comleted- Liver WNL, bilateral simple renal cysts, mild to moderate pericardial effusion. Cardiology aware and plan to follow up as outpatient and repeat Echo in 4- weeks. Advised ok to discharge home today - Hepatitis screening done by PCP and negative - Advised she refrain from any further ETOH intake (3) Change in mental status Current Visit: Yes Status: Acute Base Code: R41.82 - ALTERED MENTAL STATUS, UNSPECIFIED Comment: 02/02/19 - Head CT in ED negative for acute process, + small vessel ischemic changes and chronic white matter changes - Likely mutifactoral inclucing heavy ETOH history and TSH 31.7 - Mentation has improved over night (4) H/O ETOH abuse Current Visit: Yes Status: Acute Base Code: Z87.898 - PERSONAL HISTORY OF OTHER SPECIFIED CONDITIONS Comment: 02/02/19 - Urine ETOH negative in ED - Initiate CIWA due to poor historian and alteration in usual behavior- CIWA scores consistently 0-1 - No gross signs of DT (5) DVT prophylaxis Current Visit: Yes Status: Acute Base Code: [id number] - Comment: 02/02/19 - Lovenox 40mg QD - Nursing to encourage ambulation (6) Full code status Current Visit: Yes Status: Acute Base Code: Z78.9 - OTHER SPECIFIED HEALTH STATUS Comment: 02/02/19 - Hospitalization Course Disposition: Home, Self-Care Hospital Course: Yeni Casas is a 63 y/o female presenting to the ED as a transfer from PCP Shahla Joshua for bradycardia, slurred speech and jaundice skin, and RUQ abdominal tenderness. Patient is an extremely poor historian and does not have any family or friends present with her. Upon reviewing case with her PCP patient does have a hx of chronic heavy ETOH use, non-adherence to medication use. Other notable history includes frequent falling- last 2 days prior to admit , ETOH, thyroid disease including radiation therapy in the 70's, CARMELINA but does not use CPAP due to nose bleeds, cardiac arrhythmia, palpitations, HTN, headaches, GERD, chronic low back pain. In the ED EKG sinus bradycardia with ST segment depression and T-wave inversion , total bili 1.9, AST/ALT 48/51, ammonia wnl, troponin <.0.010, lipase 52, urine ETOH .010, UDS negative, CXR normal, CT head no acute process, + chronic white matter changes and small vessel ischemia. 02/01/19- Resting in bed comfortably, is a very poor historian. Does live alone and had a payee for her finances. Slurred speech, hyperverbal, flight of ideas. She does report has had RUQ abdominal pain for the past 2-3 days, had noticed her skin was becoming more yellow and itchy. Does admit to heavy alcohol use in the past stating at one point taking 3 shots of rum daily and then drinking a case of beer daily. Reports she takes her medications every day by taking them out the package and 'taking a handful of them daily". Did have a fall where she caught herself on a mailbox, denies head injury or LOC at that time. Unsure of event surrounding fall. Has had poor appetite. Denies chest pain, palpitations, dizziness, NANCY. Procedures: Imaging and X-Rays 02/01/19 11:57 CHEST 2 VIEWS [RAD] Stat HEAD WO CONTRAST [CT] Stat 02/02/19 08:00 ABDOMEN, COMPLETE [US] Routine Cardiology Procedures 02/01/19 11:55 Waterproof Coating Machine Tender NOW EKG NOW 02/01/19 16:05 Waterproof Coating Machine Tender .Continuous EKG QDX2@0600 02/01/19 17:23 Echo W/CF & Cardiac Doppler NOW Abnormal Labs: Abnormal Lab Results 02/01/19 02/01/19 02/01/19 Range/Units 11:55 11:55 11:56 WBC 3.7 L (4.2-12.2) K/uL MCV 98.8 H (81-97) fl MPV 11.1 H (7.4-10.4) fl Monocytes % 9.1 H (0-9) % BUN 7 L (8-23) mg/dL Total Bilirubin 1.90 H (0.2-1.0) mg/dL AST 48 H (10.0-35.0) U/L ALT 51 H (<33) U/L Alkaline Phosphatase 121 H (35-104) U/L TSH 31.07 H (0.270-4.20) uIU/mL Condition at Discharge: (1) Good Discharge Medications - Discharge Medications Home Medications: Ambulatory Orders Hydrocortisone 1 applic TOP ASDIR 02/01/19 [Last Taken 02/01/19] Discharge Plan - Discharge Instructions Activity at Discharge: Increase Activity as Tolerated Diet at Discharge: Low Fat, Low Cholesterol Additional Instructions: Appointments have been scheduled for you as follows: Shahla Joshua NP at [facility], Thursday 02/15 at 10:30 Follow up with [facility] Cardiology as scheduled Do not take Metoprolol Take Synthroid on an empty stomach and wait 30 minutes until you eat and take your other medications Do not drink alcohol Quality Measures - Quality Measures Quality Measures: Documentation of Current Medications in Medical Record, Screening for High Blood Pressure and F/U Documented - Current Medications Quality Measure: Measure #130: Documentation of Current Medications Documentation of Current Medications: <Current Medications Documented/Reviewed> [G8427] - Blood Pressure Screening Quality Measure: Screening for High Blood Pressure and Follow-Up Documented Does Patient Have Any of the Following: Active Dx of HTN Blood Pressure Classification: Hypertensive Reading Systolic Measurement: 173 Diastolic Measurement: 102 Screening for High Blood Pressure: Patient Exclusion, Hx of HTN [G9744] - Elder Abuse Suspicion Index EASI Reference Information: Ashley VELEZ, Karthikeyan C, Peña D, Eloy Ovalle.Development and validation of a tool to assist physicians identification of elder abuse: The Elder Abuse Suspicion Index (EASI ). Journal of Elder Abuse and Neglect, 2008; 20 (3): 276-300.
--- NOTE | 2019-02-03 05:41 | Cardiology Consult ---
DATE: 02/01/2019. HISTORY OF PRESENT ILLNESS: Ms. Casas is a 63-year-old patient for whom we were consulted regarding bradycardia. Ms. Casas is a very poor historian who was sent by her primary care physician to [facility]. Her primary provider was concerned that she had been having frequent falls and slurred speech. Ms. Casas tells me she presented to [facility] to receive eye drops. She denies any chest pain, shortness of breath, palpitations, or passing-out episodes. She states she is compliant with medications but cannot list any. She tells me she has a history of hyperthyroidism. She reports drinking three to five beers on the weekend. She reports no other significant alcohol use. PAST MEDICAL HISTORY: Past medical history is more consistent with hypothyroidism, hypertension. PAST SURGICAL HISTORY: None. MEDICATIONS: Unsure of what she is taking at home. Currently in the hospital, she is on aspirin 81 mg daily, atorvastatin 40 mg q. h.s., Levothyroxine 200 micrograms daily, lisinopril 20 mg daily, and meloxicam 15 mg daily. ALLERGIES: None. SOCIAL HISTORY: She states she is on disability. She lives in [place]. She has no history of tobacco use. She is currently not but has one elderly child. FAMILY HISTORY: Noncontributory. She states both parents are . PHYSICAL EXAMINATION: Mental Status: She is currently quite confused. Lungs: Clear to auscultation. Cardiac Examination: She is bradycardic with no murmur. Abdomen: Obese. Extremities: No edema. LABORATORY PROFILE: Her white count is 3.7. Hemoglobin 13.9. Platelets 179, 000. Sodium 139. Potassium 4.1. BUN 7.0. Creatinine 0.9. Her urinary drug screen was negative. Her alcohol was 0.10. AST is 48. ALT is 51. Alkaline phosphatase is 121. TSH is 31.07. ECG: ECG demonstrates sinus bradycardia at a rate of 35 beats per minute with low voltage. FINAL IMPRESSION: ASYMPTOMATIC SINUS BRADYCARDIA. PLAN: Ms. Casas is a 63-year-old patient whose baseline mentation is unknown. She is likely noncompliant with her medical regimen. She presents with significant bradycardia and hypertension. Her laboratory profile is consistent with alcohol use and severe hypothyroidism. Her hypothyroidism is likely contributing to her bradycardia. Pacemaker is not advised at this time. Avoiding any rate-controlling medications is recommended. Recommend initiation of levothyroxine as with slow improvement of her hypothyroidism, her heart rate should improve. We will obtain a baseline echocardiogram. KARLA
--- NOTE | 2019-02-03 09:15 | Cardiology Consult ---
SUBJECTIVE: Ms. Casas was seen and examined. She has no complaints of chest pain or pressure. She denies shortness of breath, palpitations, lower extremity edema, or dizziness/light headedness upon standing. Discussed the results of echocardiogram with her. She does feel ready to go home today. Her heart rates have improved and are currently in the 50s, improving to around 60 to 70 beats per minute with ambulation. OBJECTIVE: Vital Signs: Blood Pressure 130/78. Pulse 52. Respirations 18. Temperature 97.9. MEDICATIONS: Aspirin 325 mg once daily, atorvastatin 40 mg daily, levothyroxine 200 micrograms daily, lisinopril 20 mg daily. LABORATORY STUDIES: Labs done 02/01/2019 show WBC 3.7, hemoglobin 13.9, platelets 179, sodium 139, potassium 4.1, chloride 101, C02 27, BUN 7.0, creatinine 0.9, glucose 88, troponin negative times three, and TSH 31. PHYSICAL EXAMINATION: General: Alert and oriented times three and in no acute distress. HEENT: Normocephalic, atraumatic. Pupils equal, round, and reactive to light. Cardiac: Regular rate and rhythm plus S1, S2. Soft systolic murmur at the right upper sternal border. No rubs or gallops. Lungs: Clear to auscultation bilaterally. Normal respiratory effort. Abdomen: Soft and nontender with active bowel sounds. Extremities: She has 2+ radial and pedal pulses. No peripheral edema. Neurological: Cranial nerves II through XII are grossly intact. ASSESSMENT: 1. [id number] PERICARDIAL EFFUSION. 2. ASYMPTOMATIC BRADYCARDIA. 3. SEVERE HYPOTHYROIDISM. 4. HYPERTENSION, CONTROLLED. PLAN: Ms. Casas underwent transthoracic echocardiogram which showed normal left ventricular function with a [id number]-sized pericardial effusion without hemodynamic compromise. She has been hemodynamically stable and asymptomatic from a cardiac standpoint. She did have bradycardia with heart rates in the 30s and 40s yesterday. Heart rates have improved to 50 to 60 beats per minute today, increasing with ambulation. At this time recommend holding metoprolol succinate 50 mg once daily until she is evaluated by Cardiology in the office. Recommend treatment for hypothyroidism with TSH of 31. She takes levothyroxine 200 micrograms daily. Stressed to her the importance of taking her thyroid supplementation daily. Bradycardia and pericardial effusion should resolve with treatment of hypothyroidism. Will plan for her to have limited echocardiogram at [facility] on March 07, 2019, at 1:00 p.m. for re-assessment of pericardial effusion. She will then follow up with us as an outpatient in the cardiology office on March 16, 2019, at 2:00 p.m. She is agreeable with the plan and will call our office with any further questions or concerns prior to her follow-up appointment. KARLA
[2019-02-03] MEDS ORDERED: ENOXAPARIN 40 MG/0.4 ML SYR SQ SCH (10:00)
--- NOTE | 2019-02-03 10:21 | ULTRASOUND REPORT ---
EXAM: ABDOMEN ULTRASOUND HISTORY: RIGHT UPPER QUADRANT ABDOMINAL PAIN. ELEVATED LIVER ENZYMES. TECHNIQUE: Complete abdomen ultrasound was obtained. Comparison: CT lumbar spine 06/21/18, abdomen ultrasound 06/10/17. FINDINGS: The visualized portions of the abdominal aorta appear nondilated. The visualized portions of the pancreatic head and body are within normal limits. The pancreatic tail is obscured by shadowing bowel gas. Unremarkable adams scale appearance of the inferior vena cava at the level of the liver. The visualized portions of the hepatic parenchyma appear within normal limits. The gallbladder is not visualized. The common bile duct measures up to 3 mm, within normal limits. The spleen appears unremarkable. The right renal length is 10.9 cm. The left renal length is 9.3 cm. No hydronephrosis. Right renal cortical cyst measuring up to 1.6 cm and left renal cyst measuring up to 1.5 cm. No hydronephrosis. No shadowing calculi detected. Suggestion of a pericardial effusion is noted. IMPRESSION: 1. THE GALLBLADDER IS NOT VISUALIZED. THE GALLBLADDER IS NOT PRESENT ON COMPARISON CT, AND IS LIKELY SURGICALLY ABSENT. CORRELATE WITH PATIENT'S SURGICAL HISTORY. 2. NO EVIDENCE OF BILIARY DUCTAL DILATATION. 3. SMALL SIMPLE APPEARING BILATERAL RENAL CYSTS. 4. INCIDENTAL NOTE OF POSSIBLE PERICARDIAL EFFUSION. JOB NUMBER: [id number] MTDD
== END 2019-02-02 17:00 | disposition home or self-care (01) ==
LOC: ER 11:39 → MEDSURG 14:59
PROVIDERS: ADMIT Internal Medicine; ATTEND Internal Medicine
DX: R00.1 Bradycardia, unspecified (principal); R41.82 Altered mental status, unspecified; E80.7 Disorder of bilirubin metabolism, unspecified; R94.5 Abnormal results of liver function studies; R53.1 Weakness; I10 Essential (primary) hypertension; K21.9 Gastro-esophageal reflux disease without esophagitis; E03.9 Hypothyroidism, unspecified; G47.33 Obstructive sleep apnea (adult) (pediatric); F10.11 Alcohol abuse, in remission
CPT/HCPCS: 70450; 71046; 76700; 80048; 80076; 80305; 80320; 81003; 82140; 83690; 84443; 84484; 85025; 85730; 93005; 93010; 93306; 99217; 99220; 99285

== ENCOUNTER 2019-05-26 20:58 | Observation (INO) | payer MEDICARE, MEDICAID ==
[2019-05-26] MEDS ORDERED: KETOROLAC 30 MG/ML VIAL IM ONE (21:03)
[2019-05-26] MEDS ORDERED: DIAZEPAM (VALIUM) 5MG/ML **10ML VIAL IM ONE (21:03)
--- NOTE | 2019-05-26 21:08 | Emergency Department Record ---
History of Present Illness - General Chief Complaint: Back Pain/Injury Stated Complaint: BACK PAIN Time Seen by Provider: 05/26/19 21:03 Source: Patient, EMS Mode of Arrival: EMS Limitations: No limitations - History of Present Illness Initial Comments: 63 yo female presents to ED for evaluation of right-sided low back pain symptoms that began upon awakening this morning. Patient reports a history of back pain symptoms, finished rehabilitation in March for her low back pain symptoms. Patient denies dysuria, hematuria, incontinence, numbness over the groin region, or lower extremity weakness symptoms. Patient has tried tylenol and motrin for her pain symptoms that has not helped. Patient denies specific injury. MD Complaint: Back pain Onset/Timin -: Days(s) Place: Home Severity: Moderate Quality: Aching Consistency: Constant Improves With: None Worsens With: Other (standing) Context: Unknown Associated Symptoms: Denies other symptoms Treatments Prior to Arrival: Acetaminophen, NSAIDS - Related Data Allergies Allergy/AdvReac Type Severity Reaction Status Date / Time beeswax Allergy Intermediate swelling Unverified 05/03/19 11:15 perfume Allergy Intermediate tight chest Unverified 05/03/19 11:15 simethicone [From Gas-X] Allergy Intermediate tight chest Unverified 05/03/19 11:15 mosquito Allergy Intermediate swelling Uncoded 12/03/17 10:14 Review of Systems Constitutional: Denies: Chills, Fever, Malaise, Night sweats Eyes: Denies: Eye discharge, Eye pain ENT: Denies: Congestion, Ear pain, Epistaxis Respiratory: Denies: Cough, Dyspnea Cardiovascular: Denies: Chest pain, Dyspnea on exertion Endocrine: Denies: Fatigue, Heat or cold intolerance Gastrointestinal: Denies: Abdominal pain, Nausea, Vomiting Genitourinary: Denies: Dysuria, Hematuria, Incontinence, Retention Musculoskeletal: Reports: Back pain. Denies: Arthralgia Skin: Denies: Bruising, Change in color Neurological: Denies: Abnormal gait, Confusion Psychiatric: Denies: Anxiety Hematological/Lymphatic: Denies: Anemia, Blood Clots Past Medical History - SOCIAL HISTORY Smoking Status: Former smoker Drug Use: None - RESPIRATORY Hx Respiratory Disorders: Yes Hx Sleep Apnea: Yes Hx of CPAP: Yes Comment:: seasonal allergies - CARDIOVASCULAR Hx Cardio Disorders: Yes Hx Hypertension: Yes Hx Irregular Heartbeat: Yes Hx Palpitations: Yes - NEURO Hx Neuro Disorders: Yes Hx Headaches: Yes - GI Hx GI Disorders: Yes Hx Reflux: Yes - Hx Genitourinary Disorders: Yes Hx UTI: Yes - ENDOCRINE Hx Endocrine Disorders: Yes Hx Diabetes: No Hx Thyroid Disease: Yes - MUSCULOSKELETAL Hx Musculoskeletal Disorders: Yes Hx Back Injury: Yes - PSYCH Hx Psych Problems: No - HEMATOLOGY/ONCOLOGY Hx Hematology/Oncology Disorders: No Family Medical History Hx Alcohol Use: Children Hx Heart Disease: Mother Hx HTN: Mother Hx Resp Disorders: Mother Hx Seizures: Mother Hx Stroke: Mother Physical Exam - General General Appearance: Alert, Oriented x3, Cooperative, Mild distress Limitations: No limitations - Head Head exam: Atraumatic, Normocephalic, Normal inspection Head exam detail: negative: Abrasion, Contusion, Mac's sign, General tenderness, Hematoma, Laceration - Eye Eye exam: Normal appearance. negative: Conjunctival injection, Periorbital swelling, Periorbital tenderness, Scleral icterus - ENT Ear exam: negative: Auricular hematoma, Auricular trauma Nasal Exam: negative: Active bleeding, Discharge, Dried blood, Foreign body Mouth exam: negative: Drooling, Laceration, Muffled voice, Tongue elevation - Neck Neck exam: Normal inspection. negative: Meningismus, Tenderness - Respiratory Respiratory exam: Normal lung sounds bilaterally. negative: Rales, Respiratory distress, Rhonchi, Stridor - Cardiovascular Cardiovascular Exam: Regular rate, Normal rhythm, Normal heart sounds Peripheral Pulses: 3+: Dorsalis Pedis (R), Dorsalis Pedis (L) - GI/Abdominal GI/Abdominal exam: Soft. negative: Rebound, Rigid, Tenderness - Rectal Rectal exam: Deferred - exam: Deferred - Extremities Extremities exam: Normal inspection. negative: Pedal edema, Tenderness - Back Back exam: Reports: Paraspinal tenderness (Right lumbar region). Denies: CVA tenderness (R), CVA tenderness (L) - Neurological Neurological exam: Alert, Oriented X3. negative: Motor sensory deficit - Psychiatric Psychiatric exam: Normal affect, Normal mood - Skin Skin exam: Normal color. negative: Abrasion Type of lesion: negative: abrasion Course - Reevaluation(s) Reevaluation #1: 05/26/19 22:16 Patient was reassessed, resting comfortably on her left side, eyes closed. Will attempt ambulation trial to obtain UA. Reevaluation #2: 05/26/19 22:41 Attempted to sit the patient upright to obtain UA sample, patient is unable to sit upright. Previous records were reviewed: CT Lumbar Spine 06/21/18: Multi-level DJD 05/26/19 23:03 UA was reviewed, no evidence for infection. Attempted to sit the patient up once again without success. Will admit for pain control and PT evaluation in AM. Disposition Disposition: Admit Clinical Impression: Acute lumbar myofascial strain Qualifiers: Encounter type: initial encounter Qualified Code(s): S39.012A - Strain of muscle, fascia and tendon of lower back, initial encounter Disposition: Still a Patient at [facility] [place] Decision to Admit: Admit from ER Decision to Admit Date: 05/26/19 Decision to Admit Time: 23:04 Condition: (2) Stable Forms: Patient Portal Access Time of Disposition: 23:04 Quality - Quality Measures Quality Measures: N/A - Blood Pressure Screening Does Patient Have Any of the Following: Active Dx of HTN Blood Pressure Classification: Hypertensive Reading Systolic Measurement: 165 Diastolic Measurement: 79 Screening for High Blood Pressure: Patient Exclusion, Hx of HTN [G9744]
[2019-05-26 22:47] LABS: URINE APPEARANCE CLEAR; URINE BILIRUBIN NEGATIVE (NEGATIVE); URINE BLOOD NEGATIVE (NEGATIVE); URINE COLOR YELLOW; URINE GLUCOSE (UA) NEGATIVE (NEGATIVE); URINE KETONE NEGATIVE (NEGATIVE); URINE LEUKOCYTE ESTERASE TRACE (NEGATIVE); URINE NITRITE NEGATIVE (NEGATIVE); URINE PROTEIN NEGATIVE (NEGATIVE); URINE UROBILINOGEN 0.2 E.U./dL (0.20 - 1.00)
[2019-05-26 22:54] LABS: URINE BACTERIA FEW; URINE RBC NONE SEEN (NONE SEEN); URINE WBC 0 - 2 (0-2/hpf)
[2019-05-26] MEDS ORDERED: FENTANYL PF 100MCG/2ML VIAL IVP ONE (23:24)
[2019-05-26] MEDS ORDERED: FENTANYL PF 100MCG/2ML VIAL IVP PRN (23:42)
[2019-05-26] MEDS ORDERED: DIAZEPAM (VALIUM) 5MG/ML **10ML VIAL IVP PRN (23:42)
[2019-05-27] MEDS: IBUPROFEN 600 MG TABLET PO SCH ×3 (00:21→11:10)
[2019-05-27] MEDS: 0.9 % SODIUM CHLORIDE 1000ML 1,000 ML IV PRN ×2 (00:24→10:39)
[2019-05-27] MEDS ORDERED: LEVOTHYROXINE SODIUM 100 MCG TABLET PO SCH (07:00)
[2019-05-27] MEDS ORDERED: LISINOPRIL 20 MG TABLET PO SCH (10:00)
[2019-05-27] MEDS ORDERED: MELOXICAM 7.5 MG TABLET PO SCH (10:00)
[2019-05-27] MEDS ORDERED: ATORVASTATIN 20 MG TABLET PO SCH (10:00)
[2019-05-27] MEDS ORDERED: CYCLOBENZAPRINE 10MG TABLET PO PRN (10:21)
--- NOTE | 2019-05-27 13:16 | History & Physical ---
History of Present Illness - Date of Service Date of Service for History & Physical: 05/27/19 - History of Present Illness Admitting Diagnosis: Lumbar strain. Unable to ambulate due to pain symptoms History of Present Illness: 63 year old female patient presented to ED for evaluation of low-back pain with muscle spasms. Patient reports sharp pain radiating across her low back with right-sided sciatica. Patient reports the symptoms began abruptly on Wednesday. Denied any trauma, heavy lifting, or any aggravating symptoms. Patient denied noting any dysuria, incontinence of bowel or bladder, numbness, or lower extremity weakness. Patient reported not taking any OTC pain medications for the symptoms. States she used a heating pad with no relief. Patient reports completing a round of PT in March for her low-back pain with significant relief of symptoms. Most recent Lumbar spine CT 06/21/18: mild multilevel degenerative changes, no acute findings of fracture, no large disc herniation, central stenosis, or neural foraminal narrowing. Other past medical history includes: chronic ETOH abuse, thyroid disease, CARMELINA with no cpap use, HTN, cardiac arrhythmias, GERD, headaches, and chronic low back pain. PCP: Shahla Joshua NP ED Course: UA: trace leuk, WBC 0-2, epithelial cells 3-6, no nitrites Toradol IVP, Valium IVP, and Fentanyl IVP 05/27/19: Patient A&O x 4, resting comfortably in bed. Patient has been ambulating in room with no assistance to bathroom throughout the day. Reports adequate pain control with Motrin and Cyclobenzaprine. Denies any radiation of pain, bowel or bladder incontinence, or numbness. Travel Screening - Travel/Exposure Within Last 30 Days Have you traveled within the last 30 days?: No - Travel/Exposure Within Last Year Have you traveled outside the [place] in the last year?: No - Additonal Travel Details Have you been exposed to anyone with a communicable illness?: No Review of Systems Reviewed: No additional complaints except as noted below Constitutional: Denies: Chills, Fever, Malaise, Night sweats Eyes: Denies: Eye discharge, Eye pain ENT: Denies: Congestion, Ear pain, Epistaxis Respiratory: Denies: Cough, Dyspnea Cardiovascular: Denies: Chest pain, Dyspnea on exertion Endocrine: Denies: Fatigue, Heat or cold intolerance Gastrointestinal: Denies: Abdominal pain, Nausea, Vomiting Genitourinary: Denies: Dysuria, Hematuria, Incontinence, Retention Musculoskeletal: Reports: Back pain. Denies: Arthralgia Skin: Denies: Bruising, Change in color Neurological: Denies: Abnormal gait, Confusion Psychiatric: Denies: Anxiety Hematological/Lymphatic: Denies: Anemia, Blood Clots Past Medical History - SOCIAL HISTORY Smoking Status: Former smoker Alcohol Use: Occasional Drug Use: None - RESPIRATORY Hx Respiratory Disorders: Yes Hx Sleep Apnea: Yes Hx of CPAP: Yes Comment:: seasonal allergies - CARDIOVASCULAR Hx Cardio Disorders: Yes Hx Hypertension: Yes Hx Irregular Heartbeat: Yes Hx Palpitations: Yes - NEURO Hx Neuro Disorders: Yes Hx Headaches: Yes - GI Hx GI Disorders: Yes Hx Reflux: Yes - Hx Genitourinary Disorders: Yes Hx UTI: Yes - ENDOCRINE Hx Endocrine Disorders: Yes Hx Diabetes: No Hx Thyroid Disease: Yes - MUSCULOSKELETAL Hx Musculoskeletal Disorders: Yes Hx Back Injury: Yes - PSYCH Hx Psych Problems: No - HEMATOLOGY/ONCOLOGY Hx Hematology/Oncology Disorders: No Family Medical History Any Significant Family History?: Yes Hx Alcohol Use: Children Hx Heart Disease: Mother Hx HTN: Mother Hx Resp Disorders: Mother Hx Seizures: Mother Hx Stroke: Mother H&P Meds/Allergies - Allergies Allergies: Allergies Allergy/AdvReac Type Severity Reaction Status Date / Time beeswax Allergy Intermediate swelling Unverified 05/03/19 11:15 perfume Allergy Intermediate tight chest Unverified 05/03/19 11:15 simethicone [From Gas-X] Allergy Intermediate tight chest Unverified 05/03/19 11:15 mosquito Allergy Intermediate swelling Uncoded 12/03/17 10:14 - Active Medications Active Medications: Current Medications Atorvastatin Calcium (Lipitor) 40 mg PO DAILY DIAM[facility] Last Admin: 05/27/19 09:43 Dose: 40 mg Documented by: Cyclobenzaprine HCl (Flexeril) 5 mg PO TID PRN PRN Reason: MUSCLE SPASMS Last Admin: 05/27/19 11:10 Dose: 5 mg Documented by: Diazepam (Diazepam) 5 mg IVP Q8HR PRN PRN Reason: PAIN - MODERATE (5-7) Fentanyl Citrate () 50 mcg IVP Q4H PRN PRN Reason: PAIN - SEVERE (8-10) Sodium Chloride () 1,000 mls @ 100 mls/hr IV .Q10H PRN PRN Reason: LARGE VOLUME IV Last Admin: 05/27/19 10:39 Dose: 100 mls/hr Documented by: Ibuprofen (Motrin 600mg) 600 mg PO Q6H [facility] Last Admin: 05/27/19 11:10 Dose: 600 mg Documented by: Levothyroxine Sodium (Synthroid) 200 mcg PO DAILYTHY [facility] Last Admin: 05/27/19 06:12 Dose: 200 mcg Documented by: Lisinopril (Zestril) 40 mg PO DAILY [facility] Last Admin: 05/27/19 09:43 Dose: 40 mg Documented by: Meloxicam (Mobic) 15 mg PO DAILY [facility] Last Admin: 05/27/19 09:42 Dose: 15 mg Documented by: Physical Exam - Vital Signs Vital Signs: Vital Signs - Last 24 Hrs Temp Pulse Resp BP Pulse Ox 05/27/19 08:19 20 05/27/19 07:40 97.5 F L 45 L 17 162/84 97 05/27/19 00:08 18 05/26/19 23:42 97.5 F L 58 L 20 174/93 97 05/26/19 22:56 49 L 18 165/79 99 05/26/19 21:06 98.4 F 141 H 20 131/114 98 - General General Appearance: Alert, Oriented x3, Cooperative, No acute distress Limitations: No limitations - Head Head exam: Atraumatic, Normocephalic, Normal inspection Head exam detail: negative: Abrasion, Contusion, Mac's sign, General tenderness, Hematoma, Laceration - Eye Eye exam: Normal appearance. negative: Conjunctival injection, Periorbital swelling, Periorbital tenderness, Scleral icterus - ENT ENT exam: Normal exam, Mucous membranes moist Ear exam: Normal external inspection. negative: Auricular hematoma, Auricular trauma Nasal Exam: negative: Active bleeding, Discharge, Dried blood, Foreign body Mouth exam: Normal external inspection. negative: Drooling, Laceration, Muffled voice, Tongue elevation - Neck Neck exam: Normal inspection. negative: Meningismus, Tenderness - Respiratory Respiratory exam: Normal lung sounds bilaterally. negative: Rales, Respiratory distress, Rhonchi, Stridor - Cardiovascular Cardiovascular Exam: Regular rate, Normal rhythm, Normal heart sounds Peripheral Pulses: 3+: Radial (R), Radial (L), Dorsalis Pedis (R), Dorsalis Ped is (L) - GI/Abdominal GI/Abdominal exam: Soft, Normal bowel sounds. negative: Rebound, Rigid, Tenderness - Rectal Rectal exam: Deferred - exam: Deferred - Extremities Extremities exam: Normal inspection. negative: Pedal edema, Tenderness - Back Back exam: Reports: Paraspinal tenderness (difuse lower lumbar region). Denies: CVA tenderness (R), CVA tenderness (L) - Neurological Neurological exam: Alert, Normal gait, Oriented X3. negative: Motor sensory deficit - Psychiatric Psychiatric exam: Normal affect, Normal mood - Skin Skin exam: Normal color. negative: Abrasion Type of lesion: negative: abrasion Results - Labs Labs Last 24 Hours: Laboratory Results - last 24 hr 05/26/19 22:40 Urine Color Yellow Urine Appearance Clear Urine pH 8.5 Ur Specific [place] 1.015 Urine Protein Negative Urine Glucose (UA) Negative Urine Ketones Negative Urine Blood Negative Urine Nitrite Negative Urine Bilirubin Negative Urine Urobilinogen 0.2 Ur Leukocyte Esterase Trace H Urine RBC None seen Urine WBC 0 - 2 Ur Epithelial Cells 3 - 6 Urine Bacteria Few VTE H&P Assessment - Risk for VTE Risk for VTE: Yes Risk Level: Moderate Risk Assessment Date: 05/27/19 Risk Assessment Time: 13:39 VTE Orders Placed or Will Be Placed: No VTE Reason for No Prophylaxis: Not Indicated Plan - Detailed Diagnosis and Plan (1) Spasm of muscle of lower back Current Visit: Yes Status: Acute Base Code: M62.830 - MUSCLE SPASM OF BACK Comment: 05/27/19: -Acute onset of lumbar muscle spasm [employer]ISHING TR[employer] with no injury -IV Toradol, Valium, and Fentanyl given in ED with minimal relief -UA negative for infection -Lumbar spine CT 06/21/18: mild multilevel degenerative changes, no acute findings of fracture, no large disc herniation, central canal stenosis, or neural foraminal narrowing -PO Motrin 600mg q6h and cyclobenzaprine 5mg q8h (2) DVT prophylaxis Current Visit: No Status: Acute Base Code: [id number] - Comment: 05/27/19 -Patient expected to be discharged within 24 hours of admission -Nursing to encourage ambulation (3) Full code status Current Visit: No Status: Acute Base Code: Z78.9 - OTHER SPECIFIED HEALTH STATUS Comment: 05/27/19: -Full code this admission
--- NOTE | 2019-05-27 13:49 | Discharge Summary ---
Providers Discharge Summary Date: 05/27/19 Date of admission: 05/26/19 23:33 Expected Date of Discharge: 05/27/19 Attending physician: LYNETTE CARDENAS Primary care physician: Shahla Joshua NP Physical Exam - Vital Signs Vital Signs: Vital Signs - Last 24 Hrs Temp Pulse Resp BP Pulse Ox 05/27/19 08:19 20 05/27/19 07:40 97.5 F L 45 L 17 162/84 97 05/27/19 00:08 18 05/26/19 23:42 97.5 F L 58 L 20 174/93 97 05/26/19 22:56 49 L 18 165/79 99 05/26/19 21:06 98.4 F 141 H 20 131/114 98 - General General Appearance: Alert, Oriented x3, Cooperative, No acute distress Limitations: No limitations - Head Head exam: Atraumatic, Normocephalic, Normal inspection Head exam detail: negative: Abrasion, Contusion, Mac's sign, General tenderness, Hematoma, Laceration - Eye Eye exam: Normal appearance. negative: Conjunctival injection, Periorbital swelling, Periorbital tenderness, Scleral icterus - ENT ENT exam: Normal exam, Mucous membranes moist Ear exam: Normal external inspection. negative: Auricular hematoma, Auricular trauma Nasal Exam: negative: Active bleeding, Discharge, Dried blood, Foreign body Mouth exam: Normal external inspection. negative: Drooling, Laceration, Muffled voice, Tongue elevation - Neck Neck exam: Normal inspection. negative: Meningismus, Tenderness - Respiratory Respiratory exam: Normal lung sounds bilaterally. negative: Rales, Respiratory distress, Rhonchi, Stridor - Cardiovascular Cardiovascular Exam: Regular rate, Normal rhythm, Normal heart sounds Peripheral Pulses: 3+: Radial (R), Radial (L), Dorsalis Pedis (R), Dorsalis Pedis (L) - GI/Abdominal GI/Abdominal exam: Soft, Normal bowel sounds. negative: Rebound, Rigid, Tenderness - Rectal Rectal exam: Deferred - exam: Deferred - Extremities Extremities exam: Normal inspection. negative: Pedal edema, Tenderness - Back Back exam: Reports: Paraspinal tenderness (difuse lower lumbar region). Denies: CVA tenderness (R), CVA tenderness (L) - Neurological Neurological exam: Alert, Normal gait, Oriented X3. negative: Motor sensory deficit - Psychiatric Psychiatric exam: Normal affect, Normal mood - Skin Skin exam: Normal color. negative: Abrasion Type of lesion: negative: abrasion Hospitalization - Hospitalization Admission Diagnosis: Lumbar strain. Unable to ambulate due to pain symptoms - Problem List/Discharge Diagnosis (1) Spasm of muscle of lower back Current Visit: Yes Status: Acute Base Code: M62.830 - MUSCLE SPASM OF BACK Comment: 05/27/19: -Acute onset of lumbar muscle spasm [employer] with no injury -IV Toradol, Valium, and Fentanyl given in ED with minimal relief -UA negative for infection -Lumbar spine CT 06/21/18: mild multilevel degenerative changes, no acute findings of fracture, no large disc herniation, central canal stenosis, or neural foraminal narrowing -PO Motrin 600mg q6h and cyclobenzaprine 5mg q8h with scripts at dc -Patient able to ambulate within the room independently -Use heating pad 20min at a time, several times throughout the day -Follow-up with PCP (2) DVT prophylaxis Current Visit: No Status: Acute Base Code: [id number] - Comment: 05/27/19 -Patient expected to be discharged within 24 hours of admission -Nursing to encourage ambulation (3) Full code status Current Visit: No Status: Acute Base Code: Z78.9 - OTHER SPECIFIED HEALTH STATUS Comment: 05/27/19: -Full code this admission - Hospitalization Course Disposition: Home, Self-Care Hospital Course: 63 year old female patient presented to ED for evaluation of low-back pain with muscle spasms. Patient reports sharp pain radiating across her low back with right-sided sciatica. Patient reports the symptoms began abruptly on Wednesday. Denied any trauma, heavy lifting, or any aggravating symptoms. Patient denied noting any dysuria, incontinence of bowel or bladder, numbness, or lower extremity weakness. Patient reported not taking any OTC pain medications for the symptoms. States she used a heating pad with no relief. Patient reports completing a round of PT in March for her low-back pain with significant relief of symptoms. Most recent Lumbar spine CT 06/21/18: mild multilevel degenerative changes, no acute findings of fracture, no large disc herniation, central stenosis, or neural foraminal narrowing. Other past medical history includes: chronic ETOH abuse, thyroid disease, CARMELINA with no cpap use, HTN, cardiac arrhythmias, GERD, headaches, and chronic low back pain. PCP: Shahla Joshua NP ED Course: UA: trace leuk, WBC 0-2, epithelial cells 3-6, no nitrites Toradol IVP, Valium IVP, and Fentanyl IVP 05/27/19: Patient A&O x 4, resting comfortably in bed. Patient has been ambulating in room with no assistance to bathroom throughout the day. Reports adequate pain control with Motrin and Cyclobenzaprine. Denies any radiation of pain, bowel or bladder incontinence, or numbness. Abnormal Labs: Abnormal Lab Results 05/26/19 Range/Units 22:40 Ur Leukocyte Esterase Trace H (NEGATIVE) Condition at Discharge: (2) Stable Discharge Medications - Discharge Medications Prescriptions: Cyclobenzaprine HCl [Flexeril] 5 mg PO TID PRN #20 tablet PRN Reason: Muscle Spasms Home Medications: Ambulatory Orders Hydrocortisone 1 applic TOP ASDIR 02/01/19 [Last Taken 02/01/19] Cyclobenzaprine HCl [Flexeril] 5 mg PO TID PRN #20 tablet 05/27/19 [Last Taken Unknown] Discharge Plan - Discharge Instructions Activity at Discharge: Increase Activity as Tolerated Diet at Discharge: Advance to Usual Diet Additional Instructions: -Take the Cyclobenzaprine (muscle relaxer) up to 3 times a day -Continue taking Mobic (Meloxicam) daily, as previously prescribed by Shahla. Do not take any additional Motrin, Ibuprofen, Aleve, Advil with this medication. You can take Tylenol (Acetaminophen) as needed -Use a heating pad for 20 minutes at a time, several times a day -Follow-up with Shahla as scheduled on May 31 Quality Measures - Quality Measures Quality Measures: Documentation of Current Medications in Medical Record, Screening for High Blood Pressure and F/U Documented - Current Medications Quality Measure: Measure #130: Documentation of Current Medications Documentation of Current Medications: <Current Medications Documented/Reviewed> [[id number]] - Blood Pressure Screening Quality Measure: Screening for High Blood Pressure and Follow-Up Documented Does Patient Have Any of the Following: Active Dx of HTN Blood Pressure Classification: Pre-Hypertensive BP Reading Systolic Measurement: 162 Diastolic Measurement: 84 Screening for High Blood Pressure: Patient Exclusion, Hx of HTN [G9744] - Elder Abuse Suspicion Index EASI Reference Information: Ashley VELEZ, Karthikeyan Andrew, Peña Sue, Eloy Ovalle.Development and validation of a tool to assist physicians identification of elder abuse: The Elder Abuse Suspicion Index (EASI ). Journal of Elder Abuse and Neglect, 2008; 20 (3): 276-300.
== END 2019-05-27 15:30 | disposition home or self-care (01) ==
LOC: ER 20:58 → MEDSURG 23:33
PROVIDERS: ADMIT Internal Medicine; ATTEND Internal Medicine
DX: S39.012A Strain of muscle, fascia and tendon of lower back, initial encounter (principal); R26.2 Difficulty in walking, not elsewhere classified; I10 Essential (primary) hypertension; E03.9 Hypothyroidism, unspecified; F10.20 Alcohol dependence, uncomplicated; K21.9 Gastro-esophageal reflux disease without esophagitis; G47.33 Obstructive sleep apnea (adult) (pediatric); Z87.828 Personal history of other (healed) physical injury and trauma; Z87.891 Personal history of nicotine dependence; I49.9 Cardiac arrhythmia, unspecified
CPT/HCPCS: 99285 ×2; 96374; 96372; 81001; G0378 ×2; J1885; J3010; J3360; 99220